=== PATIENT | male | born 1955 | race Caucasian/White ===

== ENCOUNTER → 2017-11-18 09:40 | Outpatient (CLI) | payer OTHER, SELFPAY | LOC: LAB.FUTURE 09:41 → LABSPEC 09:48 | PROVIDERS: Family Provider Family Medicine; PCP Family Medicine; Visit Provider Family Medicine | DX: N39.0 Urinary tract infection, site not specified (principal) | CPT/HCPCS: 87086; 87088; 87186 ==

== ENCOUNTER 2017-12-30 15:09 | Outpatient (RCR) | payer OTHER, SELFPAY ==
--- NOTE | 2017-12-30 16:00 | HP.PTEVAL_ITS ---
Patient's Visit Information FACUNDO BENÍTEZ is a 62 year old M referred to Physical Therapy by Gerber Jeter with a diagnosis of B Plantarfascitis. Date of Evaluation: 12/30/17 Physical Therapist: Salvador Gresham, PT, - Visit Plan Frequency: 1x/Week Duration: 2 Weeks Plan: Fit orthotics and edu pt on appropriate care next visit - Subjective Subjective: Pt reports he has worn orthotics for 10 years. Pt reports he started getting plantarfascia pain at that time which is pretty much under control now. Pt reports he plays soccer which will make his feet sore at times. Pt notes he has good sensation in his feet. Pt reports no pain currently. Pt reports his major goal is to get orthotics fit this date since his old ones are broken down. - Objective Neuro: B LE sensation is WNL to light touch. B achilles reflex= 2/3. Ankle ROM : B ankle DF= 0, PF= 50 degrees. ankle strength: B ankles are grossly 5/5 throughout. Leg length: Leg length is equal this date. No pelvic retation present at this time. - Goals Goal 1:: Fit orthotics appropriately when pt returns and edu pt on orthotic care Goal Time Frame: 1 Week - Rehabilitation Potential Physical Therapy Diagnosis: B foot pain secondary to plantarfascitis Rehabilitation Potential: Good - Anticipated Interventions Patient/Client Instruction: Educate patient on: Condition, Plan of Care For the Purpose of:: To improve self management Orthotics: Shoe insert For the Purpose of:: To improve self management Thank you for the opportunity to evaluate your patient. For Medicare and Medicare HMO plans, please review the plan of care and approve it. It will need to be FAXED BACK to us at [phone] for Medicare purposes. Please let me know if there are questions or concerns regarding this plan of care. Physician Signature: Date:
--- NOTE | 2018-04-09 15:54 | HP.PT.NRP ---
HP - Discharge Summary (1) - Patient Information FACUNDO BENÍTEZ was seen in my office for initial evaluation on 12/30/17. The following Plan of Care was established for this patient: Initial Frequency: 1x/Week Initial Duration: 2 Weeks - Anticipated Interventions Patient/Client Instruction: Educate patient on: Condition, Plan of Care For the Purpose of:: To improve self management Orthotics: Shoe insert For the Purpose of:: To improve self management This patient was last seen in our office . Pertinent comments regarding their Physical therapy will appear below: Pt was fit for orthotics on the date of 12/30/17. Pt returned a few weeks later and picked up his orthotics and wanted to fit them appropriately to his shoe. Pt was officially discontinued at that time. At this point I will be discontinuing this patient from physical therapy. I would be happy to see this patient again in the future if found appropriate by the physician. Thank you! Salvador Gresham, PT,
== END 2017-12-30 19:00 | disposition home or self-care (01) ==
LOC: PT 15:09
PROVIDERS: Family Provider Family Medicine; PCP Family Medicine; Visit Provider Family Medicine
DX: M72.2 Plantar fascial fibromatosis (principal)
CPT/HCPCS: 97161; 97760

== ENCOUNTER → 2018-03-10 07:25 | Outpatient (CLI) | payer OTHER, SELFPAY ==
[2018-03-10 11:02] LABS: Cholesterol 210 mg/dL (200); Glucose 96 mg/dL (74-106); High Density Lipoprotein 44 mg/dL; Triglycerides 101 mg/dL; Very Low Density Lipoprotein 20 mg/dL (5-40)
== END ==
PROVIDERS: Family Provider Family Medicine; PCP Family Medicine; Referring Provider Family Medicine; Visit Provider Family Medicine
DX: R97.20 Elevated prostate specific antigen [PSA] (principal); E78.00 Pure hypercholesterolemia, unspecified; Z13.1 Encounter for screening for diabetes mellitus
CPT/HCPCS: 36415; 80061; 82947; 84153

== ENCOUNTER → 2018-05-01 12:15 | Outpatient (CLI) | payer OTHER, SELFPAY ==
--- NOTE | 2018-05-01 12:20 | MRI_ITS ---
STUDY: MR PELVIS WITH T WITHOUT CONTRAST REASON FOR EXAM: Male, 62 years old. ELEVATED PSA, NODULAR DENSITIES MDX, genetic testing results 80% chance cancer, no pain TECHNIQUE: Standardized fat and water weighted pulse sequences were obtained in all 3 orthogonal planes, pre-and post contrast administration. 8 ml of Gadavist contrast material was administered intravenously for the contrast portion of the examination. Sequences include small and open FOV T1, T2, open FOV DWI and ADC, and postcontrast imaging COMPARISON: None. FINDINGS: PELVIS OVERVIEW: Osseous structures: There are cysts of the left femur intertrochanteric exhibiting sharply circumscribed sclerotic margins, and exhibiting homogeneous T2 hyperintensity and T1 hyperintensity most consistent with proteinaceous content. Indolent features. No other discrete osseous lesion is apparent. Body wall soft tissues: A few small inguinal lymph nodes none pathologically enlarged, bilateral. Left inguinal hernia containing only fat, hernia defect measuring approximately 8.6 mm. Hernia sac extending along the inguinal canal measuring up to 3.9 x 3.5 x 2.6 cm. INTRAPELVIC: Diffuse diverticulosis of the sigmoid colon with no evidence of acute diverticulitis. No apparent enlarged lymph nodes of the pelvic floor and sidewalls. Small lymph nodes are present right pelvic sidewall iliac chain. Series 5 image 4, 10 x 4 mm. Series 4 image 13 7 x 4 mm. URINARY TRACT: There is mild circumferential thickening of the wall the urinary bladder with mild trabeculation. Mild bulging of the base of the prostate into the base of the urinary bladder. Normal appearance of the distal ureters. Right seminal vesicles normal. There are 2 foci of cystic dilatation within the left seminal vesicle, measuring 11 mm and 7 mm. There is no convincing evidence of invasion of the seminal vesicles. PROSTATE: Multiple suspicious lesions. Each of these lesions exhibits T2 hypointensity and restricted diffusion. Contrast enhancement is equivocal in all lesions. No distinctive hyperenhancing lesions are identified. Of note, dynamic contrast-enhanced imaging was not performed. Single phase postcontrast imaging only. Right: -Mid to apical posterior zone overlapping posterior medial and posterior lateral segments, sharply defined T2 hypointense oval lesion measuring 16 cm craniocaudal, 1.4 cm anterior-posterior and 1.0 cm transverse. This lesion exhibits irregular bulging of the contour of the capsule and there appears to be millimeter level extension toward the neurovascular bundle. -There is an additional small apical lesion, possibly a lobulation of the 1st, in the apical posterior anterior zone measuring approximately 5.5 mm in diameter. -There is an additional small lesion mid zone relative to the larger lesion, possibly a lobulation of the largest lesion, measuring approximately 6.4 mm in diameter. -There is an additional lesion within the anterior transitional zone measuring approximately 8 mm in diameter. Left: -Focus of restricted diffusion with ill-defined T2 hypointensity within the midportion of the gland either within the anteriormost aspect of the anterior transitional zone, or within the anterior fibromuscular stroma. This focus is most conspicuous on diffusion-weighted imaging. -In the mid gland posterior zone, there is a region of ill-defined T2 hypointensity abutting but not bulging or permeating the capsule, measuring approximately 1.1 cm craniocaudal, 0.8 cm transverse, and 1 cm anterior-posterior. This exhibits low level hyperintensity on diffusion, with low-level restriction on ADC. This lesion is equivocal. MRI/Pelvis W/WO Contrast IMPRESSION: 1. Lesions of the right side of the prostate gland are most definitive. The largest bulges the capsule and there may be millimeter level extension toward the neurovascular bundle. 2. Lesions of the left gland are somewhat equivocal. 3. Largest lesion on the right, PI-RADS Category 5 based on greatest dimension over 1.5 cm, and suspected minimal extracapsular extension. T3a, N0, M0. [place] images are saved to the PACS archive. Electronically Signed: Erlin Garcia MD at 9:03 EST Tel , Service support ,
[2018-05-01 12:56] LABS: EGFR FINGERSTICK > 60.0000 mL/min (>60)
== END ==
PROVIDERS: Family Provider Family Medicine; PCP Family Medicine; Referring Provider Urology; Visit Provider Urology
DX: N40.3 Nodular prostate with lower urinary tract symptoms (principal); R97.20 Elevated prostate specific antigen [PSA]
CPT/HCPCS: 72197; A9585

== ENCOUNTER → 2018-05-12 15:16 | Outpatient (CLI) | payer OTHER, SELFPAY ==
--- NOTE | 2018-05-12 | IMM_PTH ---
PATIENT: FACUNDO BENÍTEZ LOC: [facility] U#:[id number] AGE/SX: 69/M ROOM: RE05/12/[address]: Dr. Anjum White MD : 1955 BED: DIS: SPEC #: [id number] RECD: 05/14/18 14:31 STATUS: YUMIKO REGerman #: [id number] ASHISH: 05/12/18 00:[address]: Anjum White DEPT: IMMUNOHISTOCHEMISTRY RECD BY: Vero Gonzales ENTERED: 05/14/18 14:32 SP TYPE: IMMUNO OTHR DR: Dr. Gerber Jeter MD Tissues: A - PROSTATE RIGHT E - PROSTATE LEFT F - PROSTATE LEFT Procedures: 34BE12 (add) P40 (add) 34BE12 (initial) PHYSICIAN & INSTITUTION [place] [id number] SPECIMEN INFORMATION: Tissue Source: A - Right prostate apex, E - Left prostate mid, F - Left prostate base Clinical Info: Elevated PSA Specimen Number: [id number] A, E, F CPT code: 25676, 72949 x5 METHODOLOGY: Deparaffinized sections of prefer/formalin-fixed tissue or PAP/DQ stained slides are incubated with monoclonal/polyclonal antibodies/oligonucleotide probes. Localization is made via biotin free immunoperoxidase method. Appropriate controls are performed and reacted as expected. Results on target cell population are indicated in the following table: RESULTS: ANTIBODY / CLONE RESULT Block A P40 (BC28) negative 34BE12 (34BE12) negative Block E P40 (BC28) negative * 34BE12 (34BE12) negative * *?Positive in the area of HGPIN. Block F P40 (BC28) negative 34BE12 (34BE12) negative These tests were developed and their performance characteristics determined by [facility]. They may not have been cleared or approved by the U.S. Food and Drug Administration. The FDA has determined that such clearance or approval is not necessary. INTERPRETATION: A. Right prostate, apex, core biopsy: A minute focus of adenocarcinoma. E. Left prostate, mid, core biopsy: Two minute foci of adenocarcinoma. Focal high-grade prostatic intraepithelial neoplasia (HGPIN). F. Left prostate, base, core biopsy: Adenocarcinoma, discontinuous. SJ:kaleb 05/15/18
--- NOTE | 2018-05-12 11:30 | PROSBIL_PTH ---
PATIENT: FACUNDO BENÍTEZ LOC: [facility] U#:[id number] AGE/SX: 69/M ROOM: RE05/12/[address]: Dr. Anjum White MD : 1955 BED: DIS: SPEC #: [id number] RECD: 05/12/18 15:11 STATUS: YUMIKO REGerman #: [id number] ASHISH: 05/12/18 11:[address]: Anjum White DEPT: SURGICAL PATHOLOGY RECD BY: Maxwell Barnett ENTERED: 05/13/18 10:26 SP TYPE: PROST BX ABDOULAYE DR: Dr. Gerber Jeter MD Tissues: A - PROSTATE RIGHT B - PROSTATE RIGHT C - PROSTATE RIGHT D - PROSTATE LEFT E - PROSTATE LEFT F - PROSTATE LEFT Procedures: PROSTATE BX HEADER OPERATION: Prostate biopsy PRE-OP DIAGNOSIS: Elevated PSA TISSUE SUBMITTED: A - Right apex, B - Right mid, C - Right base, D - Left apex, E - Left mid, F - Left base MICROSCOPIC DIAGNOSIS A. Right prostate, apex, core biopsy: A minute focus of prostatic adenocarcinoma: Mirtha grade: 3+3=6 Number of cores involved: 1 out of 2 Proportion of tissue involved: <5% Perineural invasion: Not identified. Greatest tumor length: <0.1 cm Chronic inflammation. See comment. B. Right prostate, mid, core biopsy: Prostatic adenocarcinoma: Morgan grade: 3+4=7 Number of cores involved: 1 out of 1 Proportion of tissue involved: 50% Perineural invasion: Not identified. Greatest tumor length: 0.6 cm C. Right prostate, base, core biopsy: Prostatic adenocarcinoma: Morgan grade: 3+4=7 Number of cores involved: 2 out of 2 Proportion of tissue involved: 90% Perineural invasion: Not identified. 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 D. Left prostate, apex, core biopsy: Prostatic tissue, negative for malignancy. E. Left prostate, mid, core biopsy: Two minute foci of prostatic adenocarcinoma: Mirtha grade: 3+3=6 Number of cores involved: 2 out of 4 Proportion of tissue involved: <5% Perineural invasion: Not identified. 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 See comment. F. Left prostate, base, core biopsy: Prostatic adenocarcinoma: Mirtha grade: 3+3=6 Number of cores involved: 2 out of 2 Proportion of tissue involved: ~50% Perineural invasion: Not identified. Greatest tumor length: 0.7 cm, discontinuous. Focal high-grade prostatic intraepithelial neoplasia (HGPIN). See comment. SONY:kaleb 05/14/18 COMMENT A, E & F - Immunohistochemistry ([id number]) supports the above diagnosis. Case has been reviewed in consultation with Dr. Doll who concurs with the above diagnosis. IDC:AM MICROSCOPIC DESCRIPTION Slides are reviewed. GROSS DESCRIPTION A - Received is one container designated prostate, right apex. The specimen consists of two elongated fragments of light navarro-white soft tissue each measuring 1 cm in length and 0.1 cm in diameter. The specimen is totally submitted in one cassette. B - Received is one container designated prostate, right mid. The specimen consists of one elongated fragment of light navarro-white soft tissue measuring 1.5 cm in length and 0.1 cm in diameter. The specimen is totally submitted in one cassette. C - Received is one container designated prostate, right base. The specimen consists of two elongated fragments of light navarro-white soft tissue measuring 1 and 1.4 cm in length and 0.1 cm in diameter. The specimen is totally submitted in one cassette. D - Received is one container designated prostate, left apex. The specimen consists of two elongated fragments of light navarro-white soft tissue measuring 0.4 and 1.2 cm in length and 0.1 cm in diameter. The specimen is totally submitted in one cassette. E - Received is one container designated prostate, left mid. The specimen consists of four elongated fragments of light navarro-white soft tissue measuring 0.5 to 1.5 cm in length and 0.1 cm in diameter. The specimen is totally submitted in one cassette. F - Received is one container designated prostate, left base. The specimen consists of two elongated fragments of light navarro-white soft tissue each measuring 1.4 cm in length and 0.1 cm in diameter. The specimen is totally submitted in one cassette. / SJ:kaleb 05/13/18 TC:0 CPT: 05235 x6 ADDENDUM ADDENDUM ADDENDUM ADDENDUM ADDENDUM ADDENDUM ADDENDUM ADDENDUM ADDENDUM ADDENDUM ADDENDUM ADDENDUM ADDENDUM ADDENDUM ADDENDUM ADDENDUM ADDENDUM ADDENDUM ADDENDUM ADDENDUM ADDENDUM ADDENDUM ADDENDUM ADDENDUM ADDENDUM ADDENDUM ADDENDUM ADDENDUM ADDENDUM ADDENDUM 08/07/2018 09:36 ADDENDUM 08/07/2018 09:36 ADDENDUM 08/07/2018 09:36 ADDENDUM 08/07/2018 09:36 ADDENDUM 08/07/2018 09:36 This addendum is added to incorporate an outside pathology consultation report. The case was examined at [facility] (#[id number]) and the following diagnosis was rendered. A. Right prostate, apex, core biopsy: Prostatic adenocarcinoma, Morgan score 6 (3+3), grade group 1 involving 5% of one of two biopsy cores. B. Right prostate, mid, core biopsy: Prostatic adenocarcinoma, Morgan score 7 (3+4), grade group 2 involving 40% of one of one biopsy core. Atypical intraductal proliferation. 5% Morgan pattern 4 is present. Cribriform pattern 4 is not identified. C. Right prostate, base, core biopsy: Prostatic adenocarcinoma, Mirtha score 7 (3+4), grade group 2 involving 75% of two of two biopsy cores. The carcinoma occupies up to 75% of a biopsy core. 20% Mirtha pattern 4 is present. Cribriform pattern 4 is present. D. Left prostate, apex, core biopsy: Negative for neoplasm. E. Left prostate, mid, core biopsy: High-grade prostatic intraepithelial neoplasia with adjacent atypical small acinar proliferation. F. Left prostate, base, core biopsy: Prostatic adenocarcinoma, Mirtha score 6 (3+3) involving 50% of two of two biopsy cores. Please see complete above mentioned consultation report in EMR
--- OUTSIDE RECORDS SUMMARY | 2018-08-14 03:49 | XMS RPT_ITS ---
:1955 Author Organization OHIP Care Team Providers Name Role Phone Ann-Marie WhiteCarlin Attending Unavailable Cindy, Carlin Referring Unavailable Jeter, Gerber Primary Care Unavailable Cindy, Carlin Attending Unavailable Cindy, Carlin Referring Unavailable Jeter, Gerber Primary Care Unavailable Jeter, Gerber Attending Unavailable Jeter, Gerber Primary Care Unavailable Jeter, Gerber Attending Unavailable Jeter, Gerber Referring Unavailable Jeter, Gerber Primary Care Unavailable Jeter, Gerber Attending Unavailable Jeter, Gerber Referring Unavailable Jeter, Gerber Primary Care Unavailable Cindy, Anjum Dave Attending Unavailable Cindy, Carlin Referring Unavailable Jeter, Gerber Primary Care Unavailable Cindy, Carlin Attending Unavailable Cindy, Carlin Referring Unavailable Jeter, Gerber Primary Care Unavailable PROBLEMS PROBLEMS DATE TYPE CONDITION / CODE ATTENDING STATUS SOURCE 05/01/2018 Unknown R97.20 - Elevated Anjum White Active [place] prostate specific [facility] antigen [PSA] / Hospital R97.20(ICD-10) Repository 05/01/2018 Unknown N40.3 - Nodular Anjum White Active [place] prostate with [facility] lower urinary Hospital tract symptoms / Repository N40.3(ICD-10) 04/14/2018 Unknown 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 / Hospital M72.2(ICD-10) Repository 11/18/2017 Unknown N39.0 - Urinary JeterGerber Active [place] tract infection, Community site not specified Hospital / N39.0(ICD-10) Repository PROCEDURES PROCEDURES No Procedure Records FoundRESULTS RESULTS BONE SCAN WHOLE Observed: 06/10/2018 Status: F Source: [place] BODY 10:26 AM [facility] REPOSITORY [facility] Imaging Services [address] [place] [address] Bone Scan Whole Body MR#: [id number] Acct: [id number] Name: FACUNDO BENÍTEZ Rep #: [id number] : 1955 M 63 From: Erlin Holbrook DO PCP: Gerber Jeter MD Status: REG CLI Study: Bone Scan Whole Body Date of Exam: 06/10/18 Exam# [id number] Ordering Dr: Anjum White MD CLINICAL: 63-year-old male with reported history of primary prostate carcinoma. WHOLE BODY 99m Tc MDP RADIONUCLIDE BONE SCINTIGRAPHY COMPARISON: MRI of the pelvis report 05/01/2018, CT of the abdomen-pelvis report 05/27/2018 FINDINGS: Following the intravenous administration of 25.0 mCi of 99m Tc MDP, whole body bone images reveal: 1. Increased radiopharmaceutical concentration is identified in the lower cervical spine posteriorly and anteriorly, acromioclavicular compartments of both shoulders, sternoclavicular compartment of the left shoulder, the left wrist and hand, bilateral knees, the fifth lumbar vertebra posteriorly on the left and right. 2. The remaining skeletal structures are scintigraphically unremarkable with normal-appearing renal images and urinary bladder activity identified. NM/Bone Scan Whole Body IMPRESSION: 1. The increased radiopharmaceutical concentration identified in the cervical spine, bilateral shoulders, left wrist, left hand, right-left knees, the fifth lumbar vertebra is most consistent with degenerative arthritis. 2. There is no definitive typical scintigraphic evidence of diffuse axial skeletal metastatic disease on the current examination. Electronically Signed: Erlin Holbrook DO at 10:43 EST Tel , Service support , CC: Gerber Jeter MD; Anjum White MD Set Off Press Operator: Signed ABDOMEN/PELVIS WITH Observed: 05/27/2018 Status: F Source: [place] CONTRAST 6:41 AM [facility] REPOSITORY [facility] Imaging Services [address] [place] [address] Abdomen/Pelvis WITH Contrast MR#: [id number] Acct: [id number] Name: FACUNDO BENÍTEZ Rep #: [id number] : 1955 M 62 From: Sabrina Mccarthy MD PCP: Gerber Jeter MD Status: REG CLI Study: Abdomen/Pelvis WITH Contrast Date of Exam: 05/27/18 Exam# [id number] Ordering Dr: Anjum White MD STUDY: CT ABDOMEN AND PELVIS WITH CONTRAST REASON FOR EXAM: Male, 62 years old. Prostate cancer. RADIATION DOSAGE (If Supplied By Facility): CTDIvol = ( 13.33 ) mGy, DLP = ( 897.38 ) mGycm TECHNIQUE: Transaxial images were obtained from the dome of the diaphragm to the symphysis pubis without oral contrast. 100 ml of Isovue 300 contrast was administered. Sagittal and coronal images were reconstructed. Individualized dose optimization techniques were used for this CT. COMPARISON: None. FINDINGS: The visualized lung bases are unremarkable. The visualized portions of the heart are within normal limits. Normal liver. Normal gallbladder and extrahepatic biliary system. Normal spleen. Normal pancreas. Normal bilateral adrenal glands. Normal right kidney. Normal left kidney. Normal visualized stomach. Normal small intestine. There are multiple colonic diverticula consistent with diverticulosis. There is non-visualization of the appendix. Normal abdominal aorta. Normal inferior vena cava. Normal retroperitoneum. Normal urinary bladder. There is a left-sided inguinal hernia containing adipose tissue. Normal osseous structures. CT/Abdomen/Pelvis WITH Contrast IMPRESSION: Descending colon and sigmoid diverticulosis. There is no evidence of metastatic lesions in the abdomen or the pelvis. Electronically Signed: Sabrina Mcacrthy MD at 8:05 EST Tel , Service support , CC: Gerber Jeter MD; Anjum White MD Set Off Press Operator: Signed PROSTATE BIOPSY Observed: 05/12/2018 Status: F Source: [place] BILATERAL 11:30 AM [facility] REPOSITORY Patient: FACUNDO BENÍTEZ : 1955 (62/M) Acct Num: [id number] Phys: Cindy BLOOD,Anjum Dave Unit Num: [id number] Loc: LABSPEC Specimen: [id number] Received: 05/12/181510 Spec Type: PROST BX TISSUES 1 TISSUES: A. PROSTATE RIGHT B. PROSTATE RIGHT C. PROSTATE RIGHT D. PROSTATE LEFT E. PROSTATE LEFT F. PROSTATE LEFT COMMENT A, E AND F - Immunohistochemistry ([id number]) supports the above diagnosis. Case has been reviewed in consultation with Dr. Doll who concurs with the above diagnosis. IDC:AM GROSS DESCRIPTION A - Received is one container designated prostate, right apex. The specimen consists of two elongated fragments of light navarro-white soft tissue each measuring 1 cm in length and 0.1 cm in diameter. The specimen is totally submitted in one cassette. B - Received is one container designated prostate, right mid. The specimen consists of one elongated fragment of light navarro-white soft tissue measuring 1.5 cm in length and 0.1 cm in diameter. The specimen is totally submitted in one cassette. C - Received is one container designated prostate, right base. The specimen consists of two elongated fragments of light navarro-white soft tissue measuring 1 and 1.4 cm in length and 0.1 cm in diameter. The specimen is totally submitted in one cassette. D - Received is one container designated prostate, left apex. The specimen consists of two elongated fragments of light navarro-white soft tissue measuring 0.4 and 1.2 cm in length and 0.1 cm in diameter. The specimen is totally submitted in one cassette. E - Received is one container designated prostate, left mid. The specimen consists of four elongated fragments of light navarro-white soft tissue measuring 0.5 to 1.5 cm in length and 0.1 cm in diameter. The specimen is totally submitted in one cassette. F - Received is one container designated prostate, left base. The specimen consists of two elongated fragments of light navarro-white soft tissue each measuring 1.4 cm in length and 0.1 cm in diameter. The specimen is totally submitted in one cassette. / SJ:rg 05/13/18 TC:0 CPT: 84930 x6 HEADER OPERATION: Prostate biopsy PRE-OP DIAGNOSIS: Elevated PSA TISSUE SUBMITTED: A - Right apex, B - Right mid, C - Right base, D - Left apex , E - Left mid, F - Left base MICROSCOPIC DESCRIPTION Slides are reviewed. MICROSCOPIC DIAGNOSIS A. Right prostate, apex, core biopsy: A minute focus of prostatic adenocarcinoma: Mirtha grade: 3+3=6 Number of cores involved: 1 out of 2 Proportion of tissue involved: <5% Perineural invasion: Not identified. Greatest tumor length: <0.1 cm Chronic inflammation. See comment. B. Right prostate, mid, core biopsy: Prostatic adenocarcinoma: [place] grade: 3+4=7 Number of cores involved: 1 out of 1 Proportion of tissue involved: 50% Perineural invasion: Not identified. Greatest tumor length: 0.6 cm C. Right prostate, base, core biopsy: Prostatic adenocarcinoma: Mirtha grade: 3+4=7 Number of cores involved: 2 out of 2 Proportion of tissue involved: 90% Perineural invasion: Not identified. 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 D. Left prostate, apex, core biopsy: Prostatic tissue, negative for malignancy. E. Left prostate, mid, core biopsy: Two minute foci of prostatic adenocarcinoma: [place] grade: 3+3=6 Number of cores involved: 2 out of 4 Proportion of tissue involved: <5% Perineural invasion: Not identified. 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 See comment. F. Left prostate, base, core biopsy: Prostatic adenocarcinoma: [place] grade: 3+3=6 Number of cores involved: 2 out of 2 Proportion of tissue involved: ~50% Perineural invasion: Not identified. Greatest tumor length: 0.7 cm, discontinuous. Focal high-grade prostatic intraepithelial neoplasia (HGPIN). See comment. SJ:kaleb 05/14/18 PSA RESULTS 1 Date Time Test Result Flag (u) Normal Range 03/10/18 0729 PSA, DIAGNOSTIC 10.40 H 0.0-4.0 ng/mL 1 This test was performed using the TPSA assay method for the Amvona chemistry system. Values obtained with different assay methods cannot be used interchangably. When changing PSA assays in the course of monitoring a patient, additional sequential testing should be carried out to confirm baseline values. Signed Russ Lucia MD 05/15/18 <signature on file> Performed By: #### PPROSBIL #### [facility] [address] [place], [address] IMMUNOHISTOCHEMISTRY Observed: 05/12/2018 Status: F Source: [place] 12:00 AM [facility] REPOSITORY Patient: FACUNDO BENÍTEZ : 1955 (62/M) Acct Num: [id number] Phys: Cindy BLOOD,Carlin Unit Num: [id number] Loc: LABSPEC Specimen: [id number] Received: 12/20/18 - 1431 Spec Type: IMMUNO TISSUES 1 TISSUES: A. PROSTATE RIGHT E. PROSTATE LEFT F. PROSTATE LEFT SPECIMEN INFORMATION: Tissue Source: A - Right prostate apex, E - Left prostate mid, F - Left prostate base Clinical Info: Elevated PSA Specimen Number: [id number] A, E, F CPT code: 84525, 90854 x5 METHODOLOGY: Deparaffinized sections of prefer/formalin-fixed tissue or PAP/DQ stained slides are incubated with monoclonal/polyclonal antibodies/oligonucleotide probes. Localization is made via biotin free immunoperoxidase method. Appropriate controls are performed and reacted as expected. Results on target cell population are indicated in the following table: RESULTS: ANTIBODY / CLONE RESULT Block A P40 (BC28) negative 34BE12 (34BE12) negative Block E P40 (BC28) negative * 34BE12 (34BE12) negative * * Positive in the area of HGPIN. Block F P40 (BC28) negative 34BE12 (34BE12) negative These tests were developed and their performance characteristics determined by [facility]. They may not have been cleared or approved by the U.S. Food and Drug Administration. The FDA has determined that such clearance or approval is not necessary. INTERPRETATION: A. Right prostate, apex, core biopsy: A minute focus of adenocarcinoma. E. Left prostate, mid, core biopsy: Two minute foci of adenocarcinoma. Focal high-grade prostatic intraepithelial neoplasia (HGPIN). F. Left prostate, base, core biopsy: Adenocarcinoma, discontinuous. SJ:kaleb 05/15/18 PHYS[facility]IAN [facility] INSTIT[facility] [address] [address] Signed Russ Lucia MD 05/15/18 <signature on file> Performed By: #### PIMM #### [facility] [address] [place] [address], [id number] CREATININE FINGERSTICK Collected: 05/01/2018 Status: F Source: [place] 12:37 PM [facility] REPOSITORY TYPE CODE TESTS RESULT OUT OF RANGE REFERENCE UNITS LAB L9100.0210 0.70-1.30 mg/dL Normal CREATININE WB 1.0 LAB L9100.0220 >60 mL/min EGFR WB Normal > 60.0000 Performed By: #### L9100.0200 #### [facility] Point of Care [address] [place] [address] PELVIS W/WO CONTRAST Observed: 05/01/2018 Status: F Source: [place] 12:20 PM [facility] REPOSITORY [facility] Imaging Services [address] [place] [address] Pelvis W/WO Contrast MR#: [id number] Acct: [id number] Name: FACUNDO BENÍTEZ Rep #: [id number] : 1955 M 62 From: Erlin Garcia MD PCP: Gerber Jeter MD Status: REG CLI Study: Pelvis W/WO Contrast Date of Exam: 05/01/18 Exam# [id number] Ordering Dr: Anjum White MD ADDENDUM by Erlin Garcia MD on 05/06/18 at 1057 ADDENDUM ADDENDUM: Comparison is no available to prior MRI of the pelvis dated 08/10/2016. The available images include diffusion-weighted imaging without ADC or eADC. On the prior study there is a distinctive focus of T2 hypointensity, bright on DWI, within the mid prostate, posterior medial/posterior lateral zone on the right. Oval shape, 1.06 cm anterior-posterior, 1.39 cm transverse, and 1.13 cm craniocaudal. In the same position on the current study, the lesion measured 1.6 x 1.4 x 1.0 cm. On the prior study this lesion was abutting the capsule. On the current study the lesion is more prominently bulging the capsule, with suspected millimeter level extracapsular extension. On the current study the lesion has additional small adjacent lobulations that were not apparent on prior imaging of 2017. The zone of ill-defined low level T2 hypointensity in the left prostate mid zone posterior lateral/posterior medial was present on the prior study and has not substantially changed. This region did not exhibit any apparent diffusion restriction on the prior study. The small focus of restricted diffusion within the right prostate anterior transitional zone measuring 8 mm on the current study, best seen on eADC/ADC, has slightly increased in size and conspicuity as compared to prior imaging. On the prior study this focus was quite ill- defined, really not discernible except in retrospect, and visible only as a 5.5 mm focus of T2 hypointensity, poorly seen on DWI sequence. On the current study this lesion is most conspicuous for bright signal on the exponential ADC, and signal dropout/restriction on the ADC. Without those series, this focus would be indiscernible relative to the surrounding BPH changes. ADDENDUM 05/06/18 1057 Date cc: Gerber Jeter MD; Anjum White MD * Signed ADDENDUM by Erlin Garcia MD on 05/06/18 at 1057 MRI/Pelvis W/WO Contrast IMPRESSION: 1. The index lesion lies within the right mid prostate posterior lateral/posterior medial peripheral zone. The lesion appears to be very minimally increased in size, but there is now more apparent bulging of the prostatic capsule with suspicion of millimeter level extension through the capsule toward the neurovascular bundle. 2. A smaller lesion roughly in the right prostate anterior transitional zone may have very slightly increased in size compared to prior imaging but was really indistinguishable from BPH changes on the prior study. It stands out on the current study most notably due to the application of diffusion-weighted imaging with exponential ADC and ADC. 3. The ill-defined T2 hypointensity seen within the mid left gland posterior lateral/posterior medial peripheral zone is unchanged, and and is not convincing on diffusion/ADC imaging. This is probably normal tissue. Electronically Signed: Erlin Garcia MD at 10:57 EST Tel , Service support , 05/06/18 1104 Date cc: Gerber Jeter MD; Anjum White MD * Signed STUDY: MR PELVIS WITH T WITHOUT CONTRAST REASON FOR EXAM: Male, 62 years old. ELEVATED PSA, NODULAR DENSITIES MDX, genetic testing results 80% chance cancer, no pain TECHNIQUE: Standardized fat and water weighted pulse sequences were obtained in all 3 orthogonal planes, pre-and post contrast administration. 8 ml of Gadavist contrast material was administered intravenously for the contrast portion of the examination. Sequences include small and open FOV T1, T2, open FOV DWI and ADC, and postcontrast imaging COMPARISON: None. FINDINGS: PELVIS OVERVIEW: Osseous structures: There are cysts of the left femur intertrochanteric exhibiting sharply circumscribed sclerotic margins, and exhibiting homogeneous T2 hyperintensity and T1 hyperintensity most consistent with proteinaceous content. Indolent features. No other discrete osseous lesion is apparent. Body wall soft tissues: A few small inguinal lymph nodes none pathologically enlarged, bilateral. Left inguinal hernia containing only fat, hernia defect measuring approximately 8.6 mm. Hernia sac extending along the inguinal canal measuring up to 3.9 x 3.5 x 2.6 cm. INTRAPELVIC: Diffuse diverticulosis of the sigmoid colon with no evidence of acute diverticulitis. No apparent enlarged lymph nodes of the pelvic floor and sidewalls. Small lymph nodes are present right pelvic sidewall iliac chain. Series 5 image 4, 10 x 4 mm. Series 4 image 13 7 x 4 mm. URINARY TRACT: There is mild circumferential thickening of the wall the urinary bladder with mild trabeculation. Mild bulging of the base of the prostate into the base of the urinary bladder. Normal appearance of the distal ureters. Right seminal vesicles normal. There are 2 foci of cystic dilatation within the left seminal vesicle, measuring 11 mm and 7 mm. There is no convincing evidence of invasion of the seminal vesicles. PROSTATE: Multiple suspicious lesions. Each of these lesions exhibits T2 hypointensity and restricted diffusion. Contrast enhancement is equivocal in all lesions. No distinctive hyperenhancing lesions are identified. Of note, dynamic contrast-enhanced imaging was not performed. Single phase postcontrast imaging only. Right: -Mid to apical posterior zone overlapping posterior medial and posterior lateral segments, sharply defined T2 hypointense oval lesion measuring 16 cm craniocaudal, 1.4 cm anterior-posterior and 1.0 cm transverse. This lesion exhibits irregular bulging of the contour of the capsule and there appears to be millimeter level extension toward the neurovascular bundle. -There is an additional small apical lesion, possibly a lobulation of the 1st, in the apical posterior anterior zone measuring approximately 5.5 mm in diameter. -There is an additional small lesion mid zone relative to the larger lesion, possibly a lobulation of the largest lesion, measuring approximately 6.4 mm in diameter. -There is an additional lesion within the anterior transitional zone measuring approximately 8 mm in diameter. Left: -Focus of restricted diffusion with ill-defined T2 hypointensity within the midportion of the gland either within the anteriormost aspect of the anterior transitional zone, or within the anterior fibromuscular stroma. This focus is most conspicuous on diffusion-weighted imaging. -In the mid gland posterior zone, there is a region of ill- defined T2 hypointensity abutting but not bulging or permeating the capsule, measuring approximately 1.1 cm craniocaudal, 0.8 cm transverse, and 1 cm anterior-posterior. This exhibits low level hyperintensity on diffusion, with low-level restriction on ADC. This lesion is equivocal. MRI/Pelvis W/WO Contrast IMPRESSION: 1. Lesions of the right side of the prostate gland are most definitive. The largest bulges the capsule and there may be millimeter level extension toward the neurovascular bundle. 2. Lesions of the left gland are somewhat equivocal. 3. Largest lesion on the right, PI-RADS Category 5 based on greatest dimension over 1.5 cm, and suspected minimal extracapsular extension. T3a, N0, M0. [place] images are saved to the PACS archive. Electronically Signed: Erlin Garcia MD at 9:03 EST Tel , Service support , CC: Gerber Jeter MD; Anjum White MD Set Off Press Operator: Signed LIPID PROFILE Collected: 03/10/2018 Status: F Source: [place] 7:29 AM [facility] REPOSITORY Order Comment: Order Date: 09/04/17 Order Info: [id number] - LIPID Order Info: [id number] - PSAD TYPE CODE TESTS RESULT OUT OF RANGE REFERENCE UNITS LAB L501.4900 200 mg/dL High CHOL 210 Result Comment: <200 mg/dL Desirable 200-240 mg/dL Borderline >240 mg/dL High Risk LAB L501.5000 mg/dL Normal TRIG 101 Result Comment: The drugs N-Acetylcysteine and Metamizole may falsely depress this assay. Serum Triglycerides Reference Interval Normal <150 mg/dL Borderline high 150 - 199 mg/dL High 200 - 499 mg/dL Very High > or = 500 mg/dL LAB L501.6400 mg/dL Normal HDL 44 Result Comment: The drugs N-Acetylcysteine and Metamizole may falsely depress this assay. Reference Range HDL <40 mg/dL Low HDL Cholesterol HDL >or= 60 mg/dL High HDL Cholesterol LAB L501.6500 0-130 mg/dL High LDL 146 LAB L501.6600 5-40 mg/dL Normal VLDL 20 Performed By: #### L500.4100 #### [facility] [address] [place], [address] GLUCOSE Collected: 03/10/2018 Status: F Source: [place] 7:29 AM [facility] REPOSITORY Order Comment: Order Date: 09/04/17 Order Info: [id number] - LIPID Order Info: 0783-1 - PSAD TYPE CODE TESTS RESULT OUT OF RANGE REFERENCE UNITS LAB L501.0100 74-106 mg/dL Normal GLU 96 Result Comment: Please note revised GLUCOSE reference range effective 2017. Performed By: #### L501.0100 #### [facility] [address] [place], [address] PSA,TOTAL- DIAGNOSTIC Collected: 03/10/2018 Status: F Source: [place] 7:29 AM [facility] REPOSITORY Order Comment: Order Date: 09/04/17 Order Info: [id number] - LIPID Order Info: 0783-1 - PSAD TYPE CODE TESTS RESULT OUT OF REFERENCE UNITS RANGE LAB L501.9940 0.0-4.0 ng/mL PSA, High DIAGNOSTIC 10.40 Result Comment: This test was performed using the TPSA assay method for the Amvona chemistry system. Values obtained with different assay methods cannot be used interchangably. When changing PSA assays in the course of monitoring a patient, additional sequential testing should be carried out to confirm baseline values. Performed By: #### L501.9940 #### [facility] [address] [place], [address] INITAL EVALUATION (1) Observed: 12/30/2017 Status: F Source: [place] - PT 4:00 PM [facility] REPOSITORY [facility] [address] [place] [address] Fax REHABILITATION SERVICES INITIAL EVALUATION MR#: [id number] Acct: [id number] Name: FACUNDO BENÍTEZ Rep #: [id number] : 1955 62 From: Salvador Gresham PT, ATC Referring Dr.: Gerber Jeter MD Status: REG RCR Insurance: [employer]ANCE Patient's Visit Information FACUNDO BENÍTEZ is a 62 year old M referred to Physical Therapy by Gerber Jeter with a diagnosis of B Plantarfascitis. Date of Evaluation: 12/30/17 Physical Therapist: Salvador Gresham PT, - Visit Plan Frequency: 1x/Week Duration: 2 Weeks Plan: Fit orthotics and edu pt on appropriate care next visit - Subjective Subjective: Pt reports he has worn orthotics for 10 years. Pt reports he started getting plantarfascia pain at that time which is pretty much under control now. Pt reports he plays soccer which will make his feet sore at times. Pt notes he has good sensation in his feet. Pt reports no pain currently. Pt reports his major goal is to get orthotics fit this date since his old ones are broken down. - Objective Neuro: B LE sensation is WNL to light touch. B achilles reflex= 2/3. Ankle ROM: B ankle DF= 0, PF= 50 degrees. ankle strength: B ankles are grossly 5/5 throughout. Leg length: Leg length is equal this date. No pelvic retation present at this time. - Goals Goal 1:: Fit orthotics appropriately when pt returns and edu pt on orthotic care Goal Time Frame: 1 Week - Rehabilitation Potential Physical Therapy Diagnosis: B foot pain secondary to plantarfascitis Rehabilitation Potential: Good - Anticipated Interventions Patient/Client Instruction: Educate patient on: Condition, Plan of Care For the Purpose of:: To improve self management Orthotics: Shoe insert For the Purpose of:: To improve self management Thank you for the opportunity to evaluate your patient. For Medicare and Medicare HMO plans, please review the plan of care and approve it. It will need to be FAXED BACK to us at [phone] for Medicare purposes. Please let me know if there are questions or concerns regarding this plan of care. Physician Signature: Date: <Electronically signed by Salvador Gresham PT, ATC> 12/30/17 1600 CC: Gerber Jeter MD [facility] Signed For Medicare only, by signing this I certify the plan of care. Physicians Signature Date Observed: 11/18/2017 Status: F Source: WEATHERBY CULTURE, URINE 9:41 AM [facility] REPOSITORY Urine Culture ORGANISM 1: Presumptive E. coli [place] Count >100,000 Presumptive E. coli: REACTION Amoxacillin/Clavulanic Acid $ 8 S Ampicillin $ >=32 R Ampicillin/Sulbactam $ 16 I Cefazolin $ <=4 S Cefepime $ <=1 S Ceftriaxone $ <=1 S Ciprofloxacin $ <=0.25 S ESBL - Ertapenim $$$ <=0.5 S Gentamicin $ >=16 R Imipenem *NF <=0.25 S Levofloxacin $ <=0.12 S Nitrofurantoin $ <=16 S Piperacillin/Tazobactam $$ <=4 S Tobramycin $ 4 S Trimethoprim/Sulfametho $ >=320 R (NF) indicates non-formulary drug at [facility]. Approval by Infectious Disease Specialist required before non-formulary drugs may be ordered and/or dispensed. Performed By: #### M100.0650 #### [facility] [address] [place], [address] ALLERGIES ALLERGIES DATE TYPE / CODE NAME / CODE REACTION SEVERITY SOURCE 09/28/2015 Drug No Known Unknown [facility] Allergy/4160 Allergies/F00 Hospital 06750(SNOMED 8519545(RXNOR Repository CT) M) ENCOUNTERS ENCOUNTERS ADMIT/DISCHARGE ACCOUNT ADMITTING ENCOUNTER LOCATION SOURCE NUMBER CLASS 06/10/2018 [id number] Ambulatory [place] 9 [facility] ing:NM Repository 05/27/2018 [id number] Ambulatory [place] 7 [facility] ing:CT Repository 05/12/2018 [id number] Ambulatory [place] 5 [facility] ing:LABSPEC Repository 05/01/2018 [id number] Ambulatory [place] 7 [facility] ing:MRI Repository 03/10/2018 [id number] Ambulatory [place] 6 [facility] ing:MTLAB Repository 12/30/2017/ [id number] Ambulatory [place] 8 7 [facility] ing:PT Repository 11/18/2017 [id number] Ambulatory [place] 5 [facility] ing:LABSPEC Repository PAYERS PAYERS ENCOUNTER GUARANTOR PAYER SUBSCRIBER SOURCE 06/10/2018 FACUNDO Tolbert [id number] Primary FACUNDO Tolbert VANESSAOB: [place] DAVIES Insurance:CORESOURCEP [id number] [facility] Number: [facility] [id number]: ([phone]) [id number] Repository [phone] () Date:6429-91-32[address], [place] [address]LR: 06/10/2018 Secondary NOT GIVENUNK [place] Insurance:SELF PAY [facility] Number: Effective Repository Date:2018-05-22 05/27/2018 FACUNDO Tolbert [id number] Primary FACUNDO Tolbert OJYDOB: [place] DAVIES Insurance[facility] [id number] Number: [facility] [id number]: (330) [id number] Repository [phone] (HP) Date:6945-97-49WF [address] [place] [address]MC: 05/27/2018 Secondary NOT GIVENUNK [place] Insurance:SELF PAY [facility] Number: Effective Repository Date:2018-05-22 05/12/2018 FACUNDO W [id number] Primary FACUNDO W HOYDOB: [place] DAVIES Insurance:CORESOURCEP [id number] Number: Hospital [id number]: (330) [id number] Repository [phone] (HP) Date:5765-66-45LL [address] [place] [address]XV: 05/12/2018 Secondary NOT GIVENUNK [place] Insurance:SELF PAY Community [facility] Number: Effective Repository Date:2018-05-12 05/01/2018 FACUNDO W [id number] Primary FACUNDO W HOYDOB: [place] DAVIES Insurance:CORESOURCEP [id number] [facility] [place] Number: Hospital [id number]: (330) [id number] Repository [phone] (HP) Date:3573-11-80LI [address] [place] [address]MN: 05/01/2018 Secondary NOT GIVENUNK [place] Insurance:SELF PAY Community [facility] Number: Effective Repository Date:2018-04-23 03/10/2018 FACUNDO W [id number] Primary FACUNDO W HOYDOB: [place] DAVIES Insurance:CORESOURCEP [id number] [facility] [place] Number: Hospital [id number]: (330) [id number] Repository [phone] (HP) Date:9905-85-07PU [address] [place] [address]HP: 03/10/2018 Secondary NOT GIVENUNK [place] Insurance:SELF PAY Community [facility] Number: Effective Repository Date:2018-03-10 12/30/2017 Facundo W [id number] Primary Facundo W HoRoxOB: [place] Insurance:CORESOURCEP [id number] Number: Hospital [id number]: (330 [id number] Repository [phone] () Date:3646-39-03CC [address] [place] [address]NM: 12/30/2017 Secondary NOT GIVENUNK [place] Insurance:SELF PAY [facility] Number: Effective Repository Date:2017-12-11 11/18/2017 Facundo W Rad253 Primary Facundo W HoRoxOB: [place] Insurance:CORESOURCEP [id number] [facility] Center Number: Hospital [id number]: 330 [id number] Repository [phone] () Date:6878-30-85VE [address] [place] [address]KP: 11/18/2017 Secondary NOT GIVENUNK [place] Insurance:SELF PAY [facility] Number: Effective Repository Date:2017-11-18
== END ==
PROVIDERS: Family Provider Family Medicine; PCP Family Medicine; Referring Provider Urology; Visit Provider Urology
DX: R97.20 Elevated prostate specific antigen [PSA] (principal)
CPT/HCPCS: 88305; 88341; 88342; G0416

== ENCOUNTER → 2018-05-27 06:38 | Outpatient (CLI) | payer OTHER, SELFPAY ==
--- NOTE | 2018-05-27 06:41 | CT_ITS ---
STUDY: CT ABDOMEN AND PELVIS WITH CONTRAST REASON FOR EXAM: Male, 62 years old. Prostate cancer. RADIATION DOSAGE (If Supplied By Facility): CTDIvol = ( 13.33 ) mGy, DLP = ( 897.38 ) mGycm TECHNIQUE: Transaxial images were obtained from the dome of the diaphragm to the symphysis pubis without oral contrast. 100 ml of Isovue 300 contrast was administered. Sagittal and coronal images were reconstructed. Individualized dose optimization techniques were used for this CT. COMPARISON: None. FINDINGS: The visualized lung bases are unremarkable. The visualized portions of the heart are within normal limits. Normal liver. Normal gallbladder and extrahepatic biliary system. Normal spleen. Normal pancreas. Normal bilateral adrenal glands. Normal right kidney. Normal left kidney. Normal visualized stomach. Normal small intestine. There are multiple colonic diverticula consistent with diverticulosis. There is non-visualization of the appendix. Normal abdominal aorta. Normal inferior vena cava. Normal retroperitoneum. Normal urinary bladder. There is a left-sided inguinal hernia containing adipose tissue. Normal osseous structures. CT/Abdomen/Pelvis WITH Contrast IMPRESSION: Descending colon and sigmoid diverticulosis. There is no evidence of metastatic lesions in the abdomen or the pelvis. Electronically Signed: Sabrina Mccarthy MD at 8:05 EST Tel , Service support ,
== END ==
PROVIDERS: Family Provider Family Medicine; PCP Family Medicine; Referring Provider Urology; Visit Provider Urology
DX: C61 Malignant neoplasm of prostate (principal)
CPT/HCPCS: 74177; Q9967

== ENCOUNTER → 2018-06-10 10:23 | Outpatient (CLI) | payer OTHER, SELFPAY ==
--- NOTE | 2018-06-10 10:25 | NM_ITS ---
CLINICAL: 63-year-old male with reported history of primary prostate carcinoma. WHOLE BODY 99m Tc MDP RADIONUCLIDE BONE SCINTIGRAPHY COMPARISON: MRI of the pelvis report 05/01/2018, CT of the abdomen-pelvis report 05/27/2018 FINDINGS: Following the intravenous administration of 25.0 mCi of 99m Tc MDP, whole body bone images reveal: 1. Increased radiopharmaceutical concentration is identified in the lower cervical spine posteriorly and anteriorly, acromioclavicular compartments of both shoulders, sternoclavicular compartment of the left shoulder, the left wrist and hand, bilateral knees, the fifth lumbar vertebra posteriorly on the left and right. 2. The remaining skeletal structures are scintigraphically unremarkable with normal-appearing renal images and urinary bladder activity identified. NM/Bone Scan Whole Body IMPRESSION: 1. The increased radiopharmaceutical concentration identified in the cervical spine, bilateral shoulders, left wrist, left hand, right-left knees, the fifth lumbar vertebra is most consistent with degenerative arthritis. 2. There is no definitive typical scintigraphic evidence of diffuse axial skeletal metastatic disease on the current examination. Electronically Signed: Erlin Holbrook DO at 10:43 EST Tel , Service support ,
--- OUTSIDE RECORDS SUMMARY | 2018-08-15 05:03 | XMS RPT_ITS ---
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 / Hospital M72.2(ICD-10) Repository 11/18/2017 Unknown N39.0 - Urinary JeterGerber Active [place] tract infection, Community site not specified Hospital / N39.0(ICD-10) Repository PROCEDURES PROCEDURES No Procedure Records FoundRESULTS RESULTS BONE SCAN WHOLE Observed: 06/10/2018 Status: F Source: [place] BODY 10:26 AM [facility] Imaging Services [address] [place] [address] Bone Scan Whole Body MR#: [id number] Acct: [id number] Name: FACUNDO BENÍTEZ Rep #: [id number] : 1955 M 63 From: Erlin Holbrook DO PCP: Gerber Jeter MD Status: REG CLI Study: Bone Scan Whole Body Date of Exam: 06/10/18 Exam# [id number] Ordering Dr: Anjum White MD CLINICAL: 63-year-old [...] CC: Gerber Jeter MD; Anjum White MD Shoes Salesperson: Signed ABDOMEN/PELVIS WITH Observed: 05/27/2018 Status: F Source: [place] CONTRAST 6:41 AM [facility] Imaging Services [address] [place] [address] Abdomen/Pelvis WITH Contrast MR#: [id number] Acct: [id number] Name: FACUNDO BENÍTEZ Rep #: [id number] : 1955 M 62 From: Sabrina Mccarthy MD PCP: Gerber Jeter MD Status: REG CLI Study: Abdomen/Pelvis WITH Contrast Date of Exam: 05/27/18 Exam# [id number] Ordering Dr: Anjum White MD STUDY: CT [...] abdomen or the pelvis. Electronically Signed: Sabrina Mccarthy MD at 8:05 EST Tel , Service support , CC: Gerber Jeter MD; Anjum White MD Shoes Salesperson: Signed PROSTATE BIOPSY Observed: 05/12/2018 Status: F Source: [place] BILATERAL 11:30 AM [facility] Patient: FACUNDO BENÍTEZ : 1955 (62/M) Acct Num: [id number] Phys: Cindy BLOOD,Anjum Dave Unit Num: [id number] Loc: LABSPEC Specimen: [id number] Received: 05/12/181510 Spec Type: PROST BX TISSUES 1 TISSUES: A. PROSTATE RIGHT B. PROSTATE RIGHT C. PROSTATE RIGHT D. PROSTATE LEFT E. PROSTATE LEFT F. PROSTATE LEFT COMMENT A, E AND F - Immunohistochemistry ([id number]) supports the above diagnosis. Case has been [...] one cassette. / SJ:rg 05/13/18 TC:0 CPT: 75006 x6 HEADER OPERATION: Prostate biopsy PRE-OP DIAGNOSIS: [...] Right prostate, mid, core biopsy: Prostatic adenocarcinoma: Thornton grade: 3+4=7 Number of cores involved: 1 [...] biopsy: Two minute foci of prostatic adenocarcinoma: Thornton grade: 3+3=6 Number of cores involved: 2 out of 4 Proportion of tissue involved: <5% Perineural invasion: Not identified. 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 See comment. F. Left prostate, base, core biopsy: Prostatic adenocarcinoma: Thornton grade: 3+3=6 Number of cores involved: 2 [...] using the TPSA assay method for the ChatterPlug chemistry system. Values obtained with different assay methods cannot be used interchangably. When changing PSA assays in the course of monitoring a patient, additional sequential testing should be carried out to confirm baseline values. Signed Russ Lucia MD 05/15/18 <signature on file> Performed By: #### PPROSBIL #### [facility] [address] [place], [address] IMMUNOHISTOCHEMISTRY Observed: 05/12/2018 Status: F Source: BRILLIANT 12:00 AM [facility] Patient: FACUNDO BENÍTEZ : 1955 (62/M) Acct Num: [id number] Phys: Cindy BLOOD,Carlin Unit Num: [id number] Loc: LABSPEC Specimen: [id number] Received: 12/20/18 - 1431 Spec Type: IMMUNO TISSUES 1 TISSUES: A. PROSTATE RIGHT E. PROSTATE LEFT F. PROSTATE LEFT SPECIMEN INFORMATION: Tissue Source: A - Right prostate apex, E - Left prostate mid, F - Left prostate base Clinical Info: Elevated PSA Specimen Number: [id number] A, E, F CPT code: 59249, 96766 x5 METHODOLOGY: Deparaffinized sections of prefer/formalin-fixed tissue [...] developed and their performance characteristics determined by [facility]. They may not have [...] Adenocarcinoma, discontinuous. SJ:kaleb 05/15/18 PHYSICIAN AND INSTITUTION [address] [address] Signed Russ Lucia MD 05/15/18 <signature on file> Performed By: #### PIMM #### [facility] [address] [place] [address], [id number] CREATININE FINGERSTICK Collected: 05/01/2018 Status: F Source: BRILLIANT 12:37 PM [facility] TYPE CODE TESTS RESULT OUT OF RANGE REFERENCE UNITS LAB L9100.0210 0.70-1.30 mg/dL Normal CREATININE WB 1.0 LAB L9100.0220 >60 mL/min EGFR WB Normal > 60.0000 Performed By: #### L9100.0200 #### [facility] Point of Care [address] [place] [address] PELVIS W/WO CONTRAST Observed: 05/01/2018 Status: F Source: BRILLIANT 12:20 PM [facility] Imaging Services [address] [address] Pelvis W/WO Contrast MR#: [id number] Acct: [id number] Name: FACUNDO BENÍTEZ Rep #: [id number] : 1955 M 62 From: Erlin Garcia MD PCP: Gerber Jeter MD Status: REG CLI Study: Pelvis W/WO Contrast Date of Exam: 05/01/18 Exam# [id number] Ordering Dr: Anjum White MD ADDENDUM by [...] CC: Gerber Jeter MD; Anjum White MD Shoes Salesperson: Signed LIPID PROFILE Collected: 03/10/2018 Status: F Source: [place] 7:29 AM [facility] Order Comment: Order Date: 09/04/17 Order Info: 19372-0 - LIPID Order Info: 0783-1 - PSAD [...] VLDL 20 Performed By: #### L500.4100 #### [facility] [address] [place], [address] GLUCOSE Collected: 03/10/2018 Status: F Source: BRILLI[place] 7:29 AM [facility] Order Comment: Order Date: 09/04/17 Order Info: [id number] - LIPID Order Info: 0783-1 - PSAD TYPE CODE TESTS RESULT OUT OF RANGE REFERENCE UNITS LAB L501.0100 74-106 mg/dL Normal GLU 96 Result Comment: Please note revised GLUCOSE reference range effective 2017. Performed By: #### L501.0100 #### [facility] [address] [place], [address] PSA,TOTAL- DIAGNOSTIC Collected: 03/10/2018 Status: F Source: BRILLIANT 7:29 AM [facility] Order Comment: Order Date: 09/04/17 Order Info: 02006-6 - LIPID Order Info: 0783-1 - PSAD TYPE CODE TESTS RESULT OUT OF REFERENCE UNITS RANGE LAB L501.9940 0.0-4.0 ng/mL PSA, High DIAGNOSTIC 10.40 Result Comment: This test was performed using the TPSA assay method for the ChatterPlug chemistry system. Values obtained with different assay methods cannot be used interchangably. When changing PSA assays in the course of monitoring a patient, additional sequential testing should be carried out to confirm baseline values. Performed By: #### L501.9940 #### [facility] [address] [place], [address] INITAL EVALUATION (1) Observed: 12/30/2017 Status: F Source: BRILLI[place] - PT 4:00 PM [facility] [address] [place] [address] Fax REHABILITATION SERVICES INITIAL EVALUATION MR#: [id number] Acct: [id number] Name: FACUNDO BENÍTEZ Rep #: [id number] : 1955 62 From: Salvador Gresham PT, ATC Referring Dr.: Gerber Jeter MD Status: REG RCR Insurance: [employer] SELF PAY INSURANCE Patient's Visit Information FACUNDO BENÍTEZ is a 62 year old M referred to Physical Therapy by Gerebr Jeter with a diagnosis of B Plantarfascitis. [...] to be FAXED BACK to us at [phone] for Medicare purposes. Please let me know if there are questions or concerns regarding this plan of care. Physician Signature: Date: <Electronically signed by Salvador Gresham PT, ATC> 12/30/17 1600 CC: Gerber Jeter MD [facility] Signed For Medicare only, by signing this I certify the plan of care. Physicians Signature Date Observed: 11/18/2017 Status: F Source: BRILLI[place] CULTURE, URINE 9:41 AM [facility] Urine Culture ORGANISM 1: Presumptive E. coli [place] Count >100,000 Presumptive E. coli: REACTION Amoxacillin/Clavulanic [...] >=320 R (NF) indicates non-formulary drug at [facility]. Approval by Infectious Disease Specialist required before non-formulary drugs may be ordered and/or dispensed. Performed By: #### M100.0650 #### [facility] [address] [place], [address] ALLERGIES ALLERGIES DATE TYPE / CODE NAME / CODE REACTION SEVERITY SOURCE 09/28/2015 Drug No Known Unknown [facility] Allergy/4160 Allergies/F00 Hospital 52521(SNOMED 6013226(RXNOR Repository CT) M) ENCOUNTERS ENCOUNTERS ADMIT/DISCHARGE ACCOUNT ADMITTING ENCOUNTER LOCATION SOURCE NUMBER CLASS 06/10/2018 [id number] Ambulatory [place] 9 [facility] ing:NM Repository 05/27/2018 [id number] Ambulatory [place] 7 [facility] ing:CT Repository 05/12/2018 [id number] Ambulatory [place] 5 [facility] ing:LABSPEC Repository 05/01/2018 [id number] Ambulatory [place] 7 [facility] ing:MRI Repository 03/10/2018 [id number] Ambulatory [place] 6 [facility] ing:MTLAB Repository 12/30/2017/ [id number] Ambulatory [place] 8 7 [facility] ing:PT Repository 11/18/2017 [id number] Ambulatory [place] 5 [facility] ing:LABSPEC Repository PAYERS PAYERS ENCOUNTER GUARANTOR PAYER SUBSCRIBER SOURCE 06/10/2018 FACUNDO Tolbert [id number] Primary FACUNDO Tolbert VANESSAOB: [place] DAVIES Insurance:CORESOURCEP [id number] [facility] Number: [facility] [id number]: ([phone]) [id number] Repository [phone] () Date:5021-89-38LM [address], [place] [address]PV: 06/10/2018 Secondary NOT GIVENUNK [place] Insurance:SELF PAY [facility] Number: Effective Repository Date:2018-05-22 05/27/2018 FACUNDO Tolbert [id number] Primary FACUNDO Tolbert OJYDOB: [place] DAVIES Insurance[facility] [id number] Number: [facility] [id number]: (330) [id number] Repository [phone] (HP) Date:3808-50-19AW [address] [place] [address]SQ: 05/27/2018 Secondary NOT GIVENUNK [place] Insurance:SELF PAY [facility] Number: Effective Repository Date:2018-05-22 05/12/2018 FACUNDO W [id number] Primary FACUNDO W HOYDOB: [place] DAVIES Insurance:CORESOURCEP [id number] [place] Number: Hospital [id number]: (330) [id number] Repository [phone] (HP) Date:4127-81-23AW [address] [place] [address]NO: 05/12/2018 Secondary NOT GIVENUNK [place] Insurance:SELF PAY [facility] Number: Effective Repository Date:2018-05-12 05/01/2018 FACUNDO W [id number] Primary FACUNDO W HOYDOB: [place] DAVIES Insurance:CORESOURCEP [id number] [place] Number: Hospital [id number]: (330) [id number] Repository [phone] (HP) Date:3998-21-77WW [address] [place] [address]YG: 05/01/2018 Secondary NOT GIVENUNK [place] Insurance:SELF PAY Community [facility] Number: Effective Repository Date:2018-04-23 03/10/2018 FACUNDO W [id number] Primary FACUNDO W HOYDOB: [place] DAVIES Insurance:[employer]P [id number] [facility] Number: Hospital [id number]: (330) [id number] Repository [phone] (HP) Date:3218-88-29KL [address] [place] [address]PY: 03/10/2018 Secondary NOT GIVENUNK [place] Insurance:SELF PAY Community [facility] Number: Effective Repository Date:2018-03-10 12/30/2017 Facundo W [id number] Primary Facundo W HoRoxOB: [place] Insurance:CORESOURCEP [id number] Hospital [id number]: (330 [id number] Repository [phone] () Date:2596-13-76JG [address] [place] [address]ZB: 12/30/2017 Secondary NOT GIVENUNK [place] Insurance:SELF PAY [facility] Number: Effective Repository Date:2017-12-11 11/18/2017 Facundo W [id number] Primary [place] W HoRoxOB: [place] Insurance:[employer]P [id number] Number: Hospital [id number]: 330 [id number] Repository [phone] () Date:9232-63-52HH [address] [place] [address]FJ: 11/18/2017 Secondary NOT GIVENUNK [place] Insurance:SELF PAY [facility] Number: Effective Repository Date:2017-11-18
== END ==
PROVIDERS: Family Provider Family Medicine; PCP Family Medicine; Referring Provider Urology; Visit Provider Urology
DX: C61 Malignant neoplasm of prostate (principal)
CPT/HCPCS: 78306

== ENCOUNTER 2018-10-15 07:57 | Outpatient (RCR) | payer OTHER, SELFPAY ==
--- NOTE | 2018-10-15 08:41 | HP.PTEVAL ---
Patient's Visit Information FACUNDO BENÍTEZ is a 63 year old M referred to Physical Therapy by Gerber Jeter MD with a diagnosis of Strength after surgery. Date of Evaluation: 10/15/18 Physical Therapist: Jazmin Talley DPT - Visit Plan Plan: No therapy needed at this time - Subjective Findings: August [address] Da Silva at [facility] hernia repair and prostectomy. Was cleared from Md last week and has no restrictions. Fully I prior to surgery- very active- playing soccer 2-3x a week outdoor now and indoor in winter. Wants a set of exercise and progression- plans to play Friday and then will be traveling for about 2 weeks. Has been doing light touches on the ball but not running full speed yet. Feels like the core is probably week. Has been up and moving with a lifting restriction of #10 but was doing light weight and high reps. Does not have any pain but can feel it if he stretches in a weird way- no pain with normal activities. More reminder than pain. PMHx: prostate cancer Meds: antihistamine daily for allergies. - Objective Posture: good throughout session. Gait: no deviation with running or walking. Jumping: equal landing no devaition noted. Agility: no deviation noted. Strength: 5/5 throughout LE and core is good. ROM: WFL - Rehabilitation Potential Physical Therapy Diagnosis: Patient presents with good strength in bilateral LE and core. He has no pain with ADL's or recreational activities. - Anticipated Interventions Thank you for the opportunity to evaluate your patient. For Medicare and Medicare HMO plans, please review the plan of care and approve it. It will need to be FAXED BACK to us at [phone] for Medicare purposes. For Medicare only, by signing this I certify the plan of care. Please let me know if there are questions or concerns regarding this plan of care. Physician Signature: Date:
== END 2018-10-15 19:00 | disposition home or self-care (01) ==
LOC: PT 07:57
PROVIDERS: Family Provider Family Medicine; PCP Family Medicine; Referring Provider Family Medicine; Visit Provider Family Medicine
DX: Z98.890 Other specified postprocedural states (principal)
CPT/HCPCS: 97161

== ENCOUNTER 2019-01-12 08:00 | Outpatient (RCR) | payer OTHER, SELFPAY ==
--- NOTE | 2019-01-12 08:39 | HP.PTEVAL_ITS ---
Patient's Visit Information FACUNDO BENÍTEZ is a 63 year old M referred to Physical Therapy by Gerber Jeter MD with a diagnosis of Plantar Fascitis. Date of Evaluation: 01/12/19 Physical Therapist: Jazmin Talley DPT - Visit Plan Frequency: 1x/Week Duration: 2 Weeks Plan: Fit for Orthotics- educated on importance of HEP of core/hip strength - Subjective Findings: Left plantarfascia pain for weeks- plays a lot of soccer- had to leave in the 2nd half due to pain. Pain is located along the heel of left arch. worst: 8/10 Agg: playing soccer, first steps in the AM, sitting then standing. Eases: stretching calf. Best: 0/10. Since Friday its been flared up. Wear orthotics in his soccer shoes and then in his other shoes go his older one. Stands most of the day at work. PMHx/Meds: no change. - Objective Posture: good throughout session. Gait: mild pes planus. Observation in standing: pes planus Right>Left- mild Valgus at the heel. Palpation: tender along origion or plantar fascia on the left heel. ROM: WFL. Strength: WFL. Flex: Gastroc: moderate. - Goals Goal 1:: Patient will be fit and follow protocol for orthotic use and management . - Rehabilitation Potential Physical Therapy Diagnosis: Patient presents with mild pes planus- fit for orthotics Rehabilitation Potential: Good - Anticipated Interventions Orthotics: Shoe insert Thank you for the opportunity to evaluate your patient. For Medicare and Medicare HMO plans, please review the plan of care and approve it. It will need to be FAXED BACK to us at [phone] for Medicare purposes. For Medicare only, by signing this I certify the plan of care. Please let me know if there are questions or concerns regarding this plan of care. Physician Signature: Date:
--- NOTE | 2019-01-26 14:29 | HP.PTDCNRP_ITS ---
HP - Discharge Summary (1) - Patient Information FACUNDO BENÍTEZ was seen in my office for initial evaluation on 01/12/19. The following Plan of Care was established for this patient: Initial Frequency: 1x/Week Initial Duration: 2 Weeks - Anticipated Interventions Orthotics: Shoe insert This patient was last seen in our office . Pertinent comments regarding their Physical therapy will appear below: Will knot picker cloth and fit his own orthotics. At this point I will be discontinuing this patient from physical therapy. I would be happy to see this patient again in the future if found appropriate by the physician. Thank you! HIREN BrownT
== END 2019-01-12 19:00 | disposition home or self-care (01) ==
LOC: PT 08:00
PROVIDERS: Family Provider Family Medicine; PCP Family Medicine; Referring Provider Family Medicine; Visit Provider Family Medicine
DX: M72.2 Plantar fascial fibromatosis (principal)
CPT/HCPCS: 97161; 97760

== ENCOUNTER → 2019-03-09 | Outpatient (CLI) | payer OTHER, SELFPAY ==
[2019-03-09 10:02] LABS: Hematocrit 46.2 % (40-54); Hemoglobin 15.3 g/dL (13.0-16.5); Mean Corp Hgb Conc 33.1 g/dL (32-36); Mean Corpuscular Hgb 30.7 pg (27.0-32.0); Mean Corpuscular Volume 92.6 fL (80-94); Mean Platelet Vol. 9.6 fl (6.2-12.0); Platelet Count 206 K/mm3 (150-450); RBC Distribution Width CV 14.3 % (11.6-14.6); RBC Distribution Width SD 48.9 fl (35.1-43.9); Red Blood Count 4.99 M/mm3 (4.6-6.2)
[2019-03-09 10:39] LABS: Vitamin D,25 Hydroxy 48.9 ng/mL (29.95-100.01)
[2019-03-09 10:44] LABS: AST(SGOT) 24 U/L (15-37); Alanine Aminotransfer ALT/SGPT 26 U/L (16-61); Albumin, Serum 3.7 g/dL (3.2-5.0); Alkaline Phosphatase 62 U/L (45-117); Anion Gap 4 (5-15); BUN 12 mg/dL (7-18); BUN/Creat Ratio 11.9 RATIO (10-20); Calcium,Total 8.7 mg/dL (8.5-10.1); Chloride 106 mmol/L (98-107); Cholesterol 224 mg/dL (200); Creatinine, Serum 1.01 mg/dL (0.70-1.30); EST Glomerular Filtration Rate 79 mL/min (>60); Est Glom Filt Rate - Afr Amer 95 mL/min (>60); Globulin 3.6 g/dL (2.2-4.2); Glucose 91 mg/dL (74-106); High Density Lipoprotein 54 mg/dL; PSA,Total - Annual Screen 0.01 ng/mL (0.00-4.00); Protein, Total 7.3 g/dL (6.4-8.2); Sodium Level 139 mmol/L (136-145); Triglycerides 100 mg/dL; Very Low Density Lipoprotein 20 mg/dL (5-40)
== END | disposition home or self-care (01) ==
LOC: MFPLAB 09:25
PROVIDERS: Family Provider Family Medicine; PCP Family Medicine; Referring Provider Family Medicine; Visit Provider Family Medicine
DX: E78.00 Pure hypercholesterolemia, unspecified (principal); C61 Malignant neoplasm of prostate; E55.9 Vitamin D deficiency, unspecified
CPT/HCPCS: 36415; 80053; 80061; 82306; 84153; 84403; 85027; G0103

== ENCOUNTER → 2019-03-15 | Outpatient (CLI) | payer OTHER, SELFPAY ==
--- NOTE | 2019-03-15 12:03 | RAD_ITS ---
STUDY: X-RAY - LEFT CALCANEUS REASON FOR EXAM: Male, 63 years old. Left heel pain TECHNIQUE: 2 view(s) of the calcaneus were obtained. COMPARISON: None. FINDINGS: Normal visualized calcaneus. RAD/Calcaneus min 2 Views IMPRESSION: Normal x-ray examination of the calcaneus. Electronically Signed: Quang Iglesias MD at 23:21 EDT , Service support ,
== END | disposition home or self-care (01) ==
LOC: MTRAD 12:00
PROVIDERS: Family Provider Family Medicine; PCP Family Medicine; Referring Provider Family Medicine; Visit Provider Family Medicine
DX: M79.672 Pain in left foot (principal)
CPT/HCPCS: 73650

== ENCOUNTER → 2019-03-24 | Outpatient (CLI) | payer OTHER, SELFPAY ==
[2019-03-24 10:44] LABS: Lyme Ab Screen Interpretation REF LAB
[2019-03-30 08:15] LABS: Lyme IgG P18 Ab Present (.); Lyme IgG P23 Ab Absent (.); Lyme IgG P28 Ab Absent (.); Lyme IgG P30 Ab Absent (.); Lyme IgG P39 Ab Absent (.); Lyme IgG P41 Ab Absent (.); Lyme IgG P45 Ab Absent (.); Lyme IgG P58 Ab Absent (.); Lyme IgG P66 Ab Absent (.); Lyme IgG P93 Ab Absent (.); Lyme IgM P23 Ab Absent (.); Lyme IgM P39 Ab Absent (.); Lyme IgM P41 Ab Absent (.)
[2019-03-30 08:16] LABS: Lyme IgG WB Interpretation Negative (.); Lyme IgM WB Interpretation Negative (.); Lyme Scn Total Ab w/Rflx 1.06 ISR (0.00-0.90)
== END | disposition home or self-care (01) ==
LOC: MFPLAB 10:41
PROVIDERS: Family Provider Family Medicine; PCP Family Medicine; Visit Provider Family Medicine
DX: T14.8XXA Other injury of unspecified body region, initial encounter (principal); W57.XXXA Bitten or stung by nonvenomous insect and other nonvenomous arthropods, initial encounter
CPT/HCPCS: 36415; 86617; 86618

== ENCOUNTER → 2019-09-14 08:14 | Outpatient (CLI) | payer OTHER, SELFPAY ==
[2019-09-14 09:59] LABS: Anion Gap 4 (5-15); BUN 14 mg/dL (7-18); BUN/Creat Ratio 13.7 RATIO (10-20); Calcium,Total 8.7 mg/dL (8.5-10.1); Chloride 109 mmol/L (98-107); Cholesterol 187 mg/dL (200); Creatinine, Serum 1.02 mg/dL (0.70-1.30); EST Glomerular Filtration Rate 78 mL/min (>60); Est Glom Filt Rate - Afr Amer 94 mL/min (>60); Glucose 94 mg/dL (74-106); High Density Lipoprotein 51 mg/dL; Potassium 4.4 mmol/L (3.5-5.1); Sodium Level 140 mmol/L (136-145); Triglycerides 77 mg/dL; Very Low Density Lipoprotein 15 mg/dL (5-40); Vitamin D,25 Hydroxy 51.1 ng/mL
== END ==
PROVIDERS: PCP Family Medicine; Referring Provider Family Medicine; Visit Provider Family Medicine
DX: Z00.00 Encounter for general adult medical examination without abnormal findings (principal); E55.9 Vitamin D deficiency, unspecified
CPT/HCPCS: 36415; 80048; 80061; 82306

== ENCOUNTER → 2019-10-08 15:54 | Outpatient (CLI) | payer OTHER, SELFPAY ==
[2019-10-08 17:54] LABS: PSA,Total- Diagnostic 0.02 ng/mL (0.0-4.0)
== END ==
PROVIDERS: PCP Family Medicine; Referring Provider Family Medicine; Visit Provider Family Medicine
DX: C61 Malignant neoplasm of prostate (principal)
CPT/HCPCS: 36415; 84153

== ENCOUNTER → 2020-03-14 07:12 | Outpatient (CLI) | payer OTHER, SELFPAY ==
[2020-03-14 10:25] LABS: Anion Gap 4 (5-15); BUN 14 mg/dL (7-18); BUN/Creat Ratio 13.6 RATIO (10-20); Calcium,Total 8.6 mg/dL (8.5-10.1); Chloride 103 mmol/L (98-107); Cholesterol 208 mg/dL (200); Creatinine, Serum 1.03 mg/dL (0.70-1.30); EST Glomerular Filtration Rate 77 mL/min (>60); Est Glom Filt Rate - Afr Amer 93 mL/min (>60); Glucose 82 mg/dL (74-106); High Density Lipoprotein 58 mg/dL; PSA,Total - Annual Screen 0.02 ng/mL (0.00-4.00); Potassium 4.1 mmol/L (3.5-5.1); Sodium Level 139 mmol/L (136-145); Triglycerides 79 mg/dL; Very Low Density Lipoprotein 16 mg/dL (5-40)
== END ==
PROVIDERS: PCP Family Medicine; Referring Provider Family Medicine; Visit Provider Family Medicine
DX: E55.9 Vitamin D deficiency, unspecified (principal); C61 Malignant neoplasm of prostate; E78.00 Pure hypercholesterolemia, unspecified
CPT/HCPCS: 36415; 80048; 80061; 84153; G0103

== ENCOUNTER → 2020-09-08 07:49 | Outpatient (CLI) | payer OTHER, SELFPAY ==
[2020-09-08 10:40] LABS: AST(SGOT) 28 U/L (15-37); Alanine Aminotransfer ALT/SGPT 35 U/L (16-61); Albumin, Serum 3.6 g/dL (3.2-5.0); Alkaline Phosphatase 72 U/L (45-117); Anion Gap 5 (5-15); BUN 17 mg/dL (7-18); BUN/Creat Ratio 15.3 RATIO (10-20); Calcium,Total 8.9 mg/dL (8.5-10.1); Chloride 106 mmol/L (98-107); Cholesterol 201 mg/dL (200); Creatinine, Serum 1.11 mg/dL (0.70-1.30); EST Glomerular Filtration Rate 70 mL/min (>60); Est Glom Filt Rate - Afr Amer 85 mL/min (>60); Globulin 3.6 g/dL (2.2-4.2); Glucose 95 mg/dL (74-106); High Density Lipoprotein 51 mg/dL; PSA,Total- Diagnostic 0.03 ng/mL (0.0-4.0); Protein, Total 7.2 g/dL (6.4-8.2); Sodium Level 139 mmol/L (136-145); Triglycerides 91 mg/dL; Very Low Density Lipoprotein 18 mg/dL (5-40)
== END ==
PROVIDERS: PCP Family Medicine; Referring Provider Family Medicine; Visit Provider Family Medicine
DX: E78.00 Pure hypercholesterolemia, unspecified (principal); C61 Malignant neoplasm of prostate
CPT/HCPCS: 36415; 80053; 80061; 84153

== ENCOUNTER → 2021-03-15 08:06 | Outpatient (CLI) | payer OTHER, SELFPAY ==
[2021-03-15 10:39] LABS: Anion Gap 4 (5-15); BUN 15 mg/dL (7-18); BUN/Creat Ratio 14.4 RATIO (10-20); Calcium,Total 8.5 mg/dL (8.5-10.1); Chloride 106 mmol/L (98-107); Cholesterol 175 mg/dL (200); Creatinine, Serum 1.04 mg/dL (0.70-1.30); EST Glomerular Filtration Rate 76 mL/min (>60); Est Glom Filt Rate - Afr Amer 91 mL/min (>60); Glucose 93 mg/dL (74-106); High Density Lipoprotein 52 mg/dL; PSA,Total- Diagnostic 0.04 ng/mL (0.0-4.0); Potassium 4.1 mmol/L (3.5-5.1); Sodium Level 140 mmol/L (136-145); Triglycerides 83 mg/dL; Very Low Density Lipoprotein 17 mg/dL (5-40)
== END ==
PROVIDERS: PCP Family Medicine; Referring Provider Family Medicine; Visit Provider Family Medicine
DX: C61 Malignant neoplasm of prostate (principal); E78.00 Pure hypercholesterolemia, unspecified
CPT/HCPCS: 36415; 80048; 80061; 84153; 84403

== ENCOUNTER 2021-05-15 15:30 | Outpatient (RCR) | payer OTHER, SELFPAY ==
--- NOTE | 2021-04-23 12:26 | HP.PTEVAL_ITS ---
Patient's Visit Information FACUNDO BENÍTEZ is a 65 year old M referred to Physical Therapy by Dr. Issa Meyers MD with a diagnosis of plantar fasciitis. Date of Evaluation: 04/23/21 Physical Therapist: Carson Mcqueen DPT - Visit Plan Frequency: 1x/Week Duration: 1 Week Plan: Fit for orthotics pt will return when orthotics come in. - Subjective Pt presents to PT requesting orthotics. Originally he was prescribed orthotics to improve his plantar fasciitis. Pt states he has no pain in his feet, but his orthotics are worn out and needs a new pair. Pt also notes he may have a psoas muscle strain. 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 Pt reports he received his last pair of orthotics 2 years ago. He is hopeful to continue with all of his sporting activities without issues. - Objective ROM: Left: DF 11, PF 40 degrees; Right: DF 3 degrees , PF 41 degrees. STRENGTH: Left: 5/5 PF 5/5, DF 5/5 Eversion 5/5 inversion 4+/5 Right: 5/5 PF 5/5, DF 5/5 Eversion 5/5 inversion 4+/5. shoe size :8.5 men's shoe size. GAIT: normal - Balance/Special Test Scores Lower Extremity Functional Score: 71 - Goals Goal 1:: Pt will be fit for orthotic. Goal Time Frame: 1 Week - Rehabilitation Potential Physical Therapy Diagnosis: plantar fasciitis Rehabilitation Potential: Excellent - Anticipated Interventions Patient/Client Instruction: Educate patient on: Condition For the Purpose of:: To decrease pain, To improve health and function, To improve self management Orthotics: Shoe insert For the Purpose of:: To decrease pain, To improve health and function, To improve self management Thank you for the opportunity to evaluate your patient. For Medicare and Medicare HMO plans, please review the plan of care and approve it. It will need to be FAXED BACK to us at [phone] for Medicare purposes. For Medicare only, by signing this I certify the plan of care. Please let me know if there are questions or concerns regarding this plan of care. Physician Signature: Dat e:
--- NOTE | 2021-04-30 17:22 | HP.PTEVAL_ITS ---
Patient's Visit Information FACUNDO BENÍTEZ is a 65 year old M referred to Physical Therapy by Dr. Issa Meyers MD with a diagnosis of plantar fasciitis. Date of Evaluation: 04/23/21 Physical Therapist: Sabra Orr PT, Cert MDT - Visit Plan Frequency: 1x/Week Duration: 1 Week Plan: Fit for orthotics pt will return when orthotics come in. - Subjective Pt presents to PT requesting orthotics. Originally he was prescribed orthotics to improve his plantar fasciitis. Pt states he has no pain in his feet, but his orthotics are worn out and needs a new pair. Pt also notes he may have a psoas muscle strain. 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 Pt reports he received his last pair of orthotics 2 years ago. He is hopeful to continue with all of his sporting activities without issues. - Objective ROM: Left: DF 11, PF 40 degrees; Right: DF 3 degrees , PF 41 degrees. STRENGTH: Left: 5/5 PF 5/5, DF 5/5 Eversion 5/5 inversion 4+/5 Right: 5/5 PF 5/5, DF 5/5 Eversion 5/5 inversion 4+/5. shoe size :8.5 men's shoe size. GAIT: normal - Balance/Special Test Scores Oswestry Low Back Score: 3 Lower Extremity Functional Score: 71 - Goals Goal 1:: Pt will be fit for orthotic. Goal Time Frame: 1 Week - Rehabilitation Potential Physical Therapy Diagnosis: plantar fasciitis Rehabilitation Potential: Excellent - Anticipated Interventions Patient/Client Instruction: Educate patient on: Condition For the Purpose of:: To decrease pain, To improve health and function, To i mprove self management Orthotics: Shoe insert For the Purpose of:: To decrease pain, To improve health and function, To improve self management Thank you for the opportunity to evaluate your patient. For Medicare and Medicare HMO plans, please review the plan of care and approve it. It will need to be FAXED BACK to us at [phone] for Medicare purposes. For Medicare only, by signing this I certify the plan of care. Please let me know if there are questions or concerns regarding this plan of care. Physician Si gnature: Date:
--- NOTE | 2021-05-16 10:52 | HP.PT.NRP ---
FACUNDO BENÍTEZ was seen in my office for initial evaluation on 04/23/21. The following Plan of Care was established for this patient: Initial Frequency: 1x/Week Initial Duration: 1 Week Patient/Client Instruction: Educate patient on: Condition For the Purpose of:: To decrease pain, To improve health and function, To improve self management Orthotics: Shoe insert For the Purpose of:: To decrease pain, To improve health and function, To improve self management This patient was last seen in our office 05/15/21. Pertinent comments regarding their Physical therapy will appear below: pt. was given orthotics, and fit. Pt. will be DC from this case at this point in time. At this point I will be discontinuing this patient from physical therapy. I would be happy to see this patient again in the future if found appropriate by the physician. Thank you! Carson Mcqueen, DPT Balance/Gait/Functional tests - Balance/Special Test Scores Oswestry Low Back Score: 3 Lower Extremity Functional Score: 71
== END 2021-05-15 19:00 | disposition home or self-care (01) ==
LOC: PT 15:30
PROVIDERS: PCP Family Medicine; Referring Provider Family Medicine; Visit Provider Family Medicine
DX: M72.2 Plantar fascial fibromatosis (principal)
CPT/HCPCS: 97110; 97112; 97161; 97162

== ENCOUNTER 2021-09-04 09:07 | Outpatient (CLI) | payer MEDICARE, SELFPAY ==
[2021-09-04 10:55] LABS: ALB/GLOB Ratio 0.9 RATIO (0.9-2.4); AST(SGOT) 27 U/L (15-37); Alanine Aminotransfer ALT/SGPT 28 U/L (16-61); Albumin, Serum 3.3 g/dL (3.2-5.0); Alkaline Phosphatase 51 U/L (45-117); Anion Gap 6 (5-15); BUN 15 mg/dL (7-18); BUN/Creat Ratio 14.3 RATIO (10-20); Calcium,Total 8.4 mg/dL (8.5-10.1); Chloride 106 mmol/L (98-107); Cholesterol 196 mg/dL (200); Creatinine, Serum 1.05 mg/dL (0.70-1.30); EST Glomerular Filtration Rate 75 mL/min (>60); Est Glom Filt Rate - Afr Amer 90 mL/min (>60); Globulin 3.8 g/dL (2.2-4.2); Glucose 96 mg/dL (74-106); High Density Lipoprotein 50 mg/dL; PSA,Total- Diagnostic 0.03 ng/mL (0.0-4.0); Potassium 4.4 mmol/L (3.5-5.1); Protein, Total 7.1 g/dL (6.4-8.2); Sodium Level 137 mmol/L (136-145); Triglycerides 89 mg/dL; Very Low Density Lipoprotein 18 mg/dL (5-40)
== END 2021-09-04 23:59 | disposition home or self-care (01) ==
LOC: MTLAB 09:10
PROVIDERS: PCP Family Medicine; Referring Provider Family Medicine; Visit Provider Family Medicine
DX: E78.00 Pure hypercholesterolemia, unspecified (principal); C61 Malignant neoplasm of prostate
CPT/HCPCS: 36415; 80053; 80061; 84153

== ENCOUNTER → 2022-02-26 | Outpatient (CLI) | payer MEDICARE, SELFPAY ==
[2022-02-26 12:39] LABS: ALB/GLOB Ratio 0.9 RATIO (0.9-2.4); AST(SGOT) 28 U/L (15-37); Alanine Aminotransfer ALT/SGPT 32 U/L (16-61); Albumin, Serum 3.4 g/dL (3.2-5.0); Alkaline Phosphatase 52 U/L (45-117); Anion Gap 7 (5-15); BUN 15 mg/dL (7-18); BUN/Creat Ratio 14.3 RATIO (10-20); Calcium,Total 8.7 mg/dL (8.5-10.1); Chloride 107 mmol/L (98-107); Cholesterol 202 mg/dL (200); Creatinine, Serum 1.05 mg/dL (0.70-1.30); EST Glomerular Filtration Rate 75 mL/min (>60); Est Glom Filt Rate - Afr Amer 90 mL/min (>60); Globulin 3.8 g/dL (2.2-4.2); Glucose 101 mg/dL (74-106); High Density Lipoprotein 58 mg/dL; PSA,Total- Diagnostic 0.05 ng/mL (0.0-4.0); Potassium 4.2 mmol/L (3.5-5.1); Protein, Total 7.2 g/dL (6.4-8.2); Sodium Level 140 mmol/L (136-145); Triglycerides 65 mg/dL; Very Low Density Lipoprotein 13 mg/dL (5-40)
== END | disposition home or self-care (01) ==
LOC: MFPLAB 09:56
PROVIDERS: PCP Family Medicine; Visit Provider Family Medicine
DX: E78.00 Pure hypercholesterolemia, unspecified (principal); C61 Malignant neoplasm of prostate
CPT/HCPCS: 36415; 80053; 80061; 84153

== ENCOUNTER → 2022-09-23 | Outpatient (CLI) | payer MEDICARE, SELFPAY ==
[2022-09-23 15:30] LABS: PSA,Total- Diagnostic 0.06 ng/mL (0.0-4.0)
== END | disposition home or self-care (01) ==
PROVIDERS: PCP Family Medicine; Referring Provider Family Medicine; Visit Provider Family Medicine
DX: C61 Malignant neoplasm of prostate (principal)
CPT/HCPCS: 36415; 84153

== ENCOUNTER → 2023-03-04 | Outpatient (CLI) | payer MEDICARE, SELFPAY ==
[2023-03-04 13:18] LABS: ALB/GLOB Ratio 0.8 RATIO (0.9-2.4); AST(SGOT) 25 U/L (15-37); Alanine Aminotransfer ALT/SGPT 33 U/L (16-61); Albumin, Serum 3.3 g/dL (3.2-5.0); Alkaline Phosphatase 53 U/L (45-117); Anion Gap 5 (5-15); BUN 16 mg/dL (7-18); BUN/Creat Ratio 16.9 RATIO (10-20); Calcium,Total 8.8 mg/dL (8.5-10.1); Chloride 106 mmol/L (98-107); Cholesterol 215 mg/dL (200); Creatinine, Serum 0.94 mg/dL (0.70-1.30); EST Glomerular Filtration Rate 84 mL/min (>60); Est Glom Filt Rate - Afr Amer 102 mL/min (>60); Globulin 4.1 g/dL (2.2-4.2); Glucose 90 mg/dL (74-106); High Density Lipoprotein 57 mg/dL; PSA,Total- Diagnostic 0.06 ng/mL (0.0-4.0); Potassium 4.9 mmol/L (3.5-5.1); Protein, Total 7.4 g/dL (6.4-8.2); Sodium Level 138 mmol/L (136-145); Triglycerides 76 mg/dL; Very Low Density Lipoprotein 15 mg/dL (5-40)
== END | disposition home or self-care (01) ==
LOC: MFPLAB 09:42
PROVIDERS: PCP Family Medicine; Visit Provider Family Medicine
DX: E78.00 Pure hypercholesterolemia, unspecified (principal); R97.20 Elevated prostate specific antigen [PSA]
CPT/HCPCS: 36415; 80053; 80061; 84153

== ENCOUNTER → 2023-09-01 | Outpatient (CLI) | payer MEDICARE, SELFPAY ==
[2023-09-01 10:59] LABS: PSA,Total- Diagnostic 0.06 ng/mL (0.0-4.0)
== END | disposition home or self-care (01) ==
PROVIDERS: PCP Family Medicine; Referring Provider Family Medicine; Visit Provider Family Medicine
DX: C61 Malignant neoplasm of prostate (principal)
CPT/HCPCS: 36415; 84153

== ENCOUNTER → 2024-03-02 | Outpatient (CLI) | payer MEDICARE, SELFPAY ==
[2024-03-02 10:58] LABS: ALB/GLOB Ratio 0.9 RATIO (0.9-2.4); AST(SGOT) 23 U/L (15-37); Alanine Aminotransfer ALT/SGPT 23 U/L (16-61); Albumin, Serum 3.4 g/dL (3.2-5.0); Alkaline Phosphatase 51 U/L (45-117); Anion Gap 6 (5-15); BUN 16 mg/dL (7-18); BUN/Creat Ratio 15.4 RATIO (10-20); Chloride 107 mmol/L (98-107); Cholesterol 207 mg/dL (200); Creatinine, Serum 1.04 mg/dL (0.70-1.30); EST Glomerular Filtration Rate 75 mL/min (>60); Est Glom Filt Rate - Afr Amer 91 mL/min (>60); Globulin 3.7 g/dL (2.2-4.2); Glucose 98 mg/dL (74-106); High Density Lipoprotein 56 mg/dL; PSA,Total- Diagnostic 0.09 ng/mL (0.0-4.0); Potassium 4.4 mmol/L (3.5-5.1); Protein, Total 7.1 g/dL (6.4-8.2); Sodium Level 138 mmol/L (136-145); Triglycerides 92 mg/dL; Very Low Density Lipoprotein 18 mg/dL (5-40)
== END | disposition home or self-care (01) ==
LOC: MTLAB 08:52
PROVIDERS: PCP Family Medicine; Referring Provider Family Medicine; Visit Provider Family Medicine
DX: E78.00 Pure hypercholesterolemia, unspecified (principal); C61 Malignant neoplasm of prostate
CPT/HCPCS: 36415; 80053; 80061; 84153

== ENCOUNTER → 2024-08-31 | Outpatient (CLI) | payer MEDICARE, SELFPAY ==
--- NOTE | 2024-08-31 13:47 | RAD_ITS ---
PROCEDURE: SHOULDER MIN 2 VIEWS 08/31/2024 REASON FOR EXAM: FALL. PAIN R SHOULDER TECHNIQUE: Four views of the right shoulder COMPARISON: None available FINDINGS: Bones: No acute displaced fracture or dislocation. Joints: AC joint osteoarthritis. Soft tissues: No overlying soft tissue swelling. Other: None RAD/Shoulder min 2 Views IMPRESSION: AC joint osteoarthritis. Otherwise no acute osseous abnormality. Reading Location: [id number]
== END | disposition home or self-care (01) ==
LOC: MTRAD 13:47
PROVIDERS: PCP Family Medicine; Referring Provider Family Medicine; Visit Provider Family Medicine
DX: M25.511 Pain in right shoulder (principal)
CPT/HCPCS: 73030

== ENCOUNTER → 2025-03-08 | Outpatient (CLI) | payer MEDICARE, SELFPAY ==
[2025-03-08 12:41] LABS: Hematocrit 43.9 % (40-54); Hemoglobin 14.7 g/dL (13.0-16.5); Immature Granulocytes Count 0.000 X10^3/uL (0.0-0.0); Mean Corp Hgb Conc 33.5 g/dL (32-36); Mean Corpuscular Volume 91.8 fL (80-94); Mean Platelet Vol. 10.0 fl (6.2-12.0); NRBC Flagged by Analyzer 0 % (0-5); Platelet Count 223 K/mm3 (150-450); RBC Distribution Width CV 13.1 % (11.6-14.6); RBC Distribution Width SD 44.1 fl (35.1-43.9); Red Blood Count 4.78 M/mm3 (4.6-6.2); White Blood Count 4.8 K/mm3 (4.4-11.0)
[2025-03-08 13:26] LABS: AST(SGOT) 29 U/L (<=37); Alanine Aminotransfer ALT/SGPT 26 U/L (<=46); Albumin, Serum 4.0 g/dL (3.4-4.8); Alkaline Phosphatase 54 U/L (40-129); Anion Gap 9 (5-15); BUN 19 mg/dL (4-19); BUN/Creat Ratio 18.7 RATIO (10-20); Calcium,Total 9.0 mg/dL (7.6-11.0); Carbon Dioxide 25.0 mmol/L (21.0-32.0); Chloride 104 mmol/L (98-108); Cholesterol 230 mg/dL (<=200); Globulin 3.0 g/dL (2.2-4.2); Glucose 98 mg/dL (70-99); Low Density Lipoprotein Calc. 156 mg/dL; PSA,Total- Diagnostic 0.33 ng/mL (0.00-4.00); Potassium 4.4 mmol/L (3.3-5.1); Triglycerides 107 mg/dL; Very Low Density Lipoprotein 21 mg/dL (5-40); cholesterol:hdl ratio screen 4.36
== END | disposition home or self-care (01) ==
LOC: MTLAB 09:28
PROVIDERS: PCP Family Medicine; Referring Provider Family Medicine; Visit Provider Family Medicine
DX: E78.00 Pure hypercholesterolemia, unspecified (principal); C61 Malignant neoplasm of prostate
CPT/HCPCS: 36415; 80053; 80061; 84153; 85025

== ENCOUNTER 2025-04-13 13:00 | Outpatient (RCR) | payer MEDICARE, SELFPAY ==
--- NOTE | 2025-03-17 13:11 | HP.PTEVAL ---
Patient's Visit Information Visit Information Visit Information: FACUNDO BENÍTEZ is a 69 year old M referred to Physical Therapy by Dr. Issa Meyers MD with a diagnosis of PES CAVUS ,PLANTAR FASCIITIS. Date of Evaluation: 03/17/25 Physical Therapist: Vinicius Baker PT, Cert MDT, OCS Visit Plan Frequency: 1 VISIT Plan: PLAN 1 VISIT TO ENSURE PROPER FITTING OF ORTHOTICS Subjective Subjective: This 69 y/o male presents to physical therapy with plantar fasciitis. Patient has h/o Pes cavus with plantar fasciitis . Patient has PF x2 but orthotics help to manage pain. Patient has had orthotics ~ 5 years ago . Patient active hiking ,skiing ,soccer . Patient typically get PF at heel and mid plantar arch. Patient denies paresthesia/tingling . No skin break down. Patient symptoms worse with activity and hobbies soccer use orthotics with daily and sports. SOCIAL: HOBBIES: SOCCER ,HIKING,SKIING Objective Objective: POSTURE : Pes Cavus GAIT: reciprocal pattern NEURO: intact,denies paresthesia/tingling AROM: dorsiflexion 5 degrees ,PF 65 ,inversion 45,eversion 10 degrees MMT: 5/5 GROSSLY Goals Goal 1:: Patient to provide with fabricated orthotics Goal Time Frame: 1 visit Rehabilitation Potential Physical Therapy Diagnosis: Patient has pes cavus with h/o plantar fasciitis thus benefit from orthotics Rehabilitation Potential: Good Anticipated Interventions Patient/Client Instruction: Educate patient on: Condition and Plan of Care For the Purpose of:: Other Other: ORTHOTICS Text: Thank you for the opportunity to evaluate your patient. For Medicare and Medicare HMO plans, please review the plan of care and approve it. It will need to be FAXED BACK to us at [phone] for Medicare purposes. For Medicare only, by signing this I certify the plan of care. Please let me know if there are questions or concerns regarding this plan of care. Physician Signature: Date:
--- NOTE | 2025-04-13 13:29 | HP.PTDCSUM ---
Discharge Summary D/C summary: It has been my pleasure to treat FACUNDO BENÍTEZ referred by Dr. Issa Meyers MD, with the diagnosis of PES CAVUS ,PLANTAR FASCIITIS for a total of 2 visit(s). Discharge Date: 04/13/25 Please see the following information for a summary of their discharge status. Subjective Subjective: Doing well Objective Objective/Function: Ensure proper fitting of orthotics to fit shes Goals Goal 1:: Patient to provide with fabricated orthotics Plan Plan: D/C D/C Information d/c sentence: If there are questions or concerns regarding this patient's physical therapy, please feel free to call me at [phone]. Thank you for the referral of this patient. Sincerely, Vinicius Baker PT, Cert MDT, OCS
== END 2025-04-13 19:00 | disposition home or self-care (01) ==
LOC: PT 13:00
PROVIDERS: PCP Family Medicine; Referring Provider Family Medicine; Visit Provider Family Medicine
DX: Q66.70 Congenital pes cavus, unspecified foot (principal); M72.2 Plantar fascial fibromatosis
CPT/HCPCS: 97161; 97760; 97763